=== PATIENT | female | born 1990 | race Caucasian/White ===

== ENCOUNTER 2018-02-25 18:09 | Emergency (ER) | payer MEDICAID ==
[~2018-02-25] VITALS: Ht 165.1 cm; Wt 106.3 kg
[2018-02-25 18:26] VITALS: BP 113/69; Ht 165.1 cm; Wt 106.3 kg
== END 2018-02-25 19:10 | disposition home or self-care (01) ==
LOC: ED 18:09
DX: L02.413 Cutaneous abscess of right upper limb (principal)
CPT/HCPCS: J2001

== ENCOUNTER 2018-02-27 19:12 | Emergency (ER) | payer MEDICAID ==
[~2018-02-27] VITALS: Ht 165.1 cm; Wt 107.0 kg
[2018-02-27 19:25] VITALS: Ht 165.1 cm; Wt 107.0 kg
[2018-02-27 21:05] VITALS: BP 121/86
== END 2018-02-27 21:05 | disposition home or self-care (01) ==
LOC: ED 19:12
DX: L02.413 Cutaneous abscess of right upper limb (principal); Z90.89 Acquired absence of other organs

== ENCOUNTER 2018-07-31 17:08 | Emergency (ER) | payer MEDICAID ==
[~2018-07-31] VITALS: Ht 165.1 cm; Wt 95.3 kg
[2018-07-31 17:11] VITALS: Ht 165.1 cm; Wt 95.3 kg
[2018-07-31 18:38] VITALS: BP 131/86
== END 2018-07-31 18:38 | disposition home or self-care (01) ==
LOC: ED 17:08
DX: T60.2X1A Toxic effect of other insecticides, accidental (unintentional), initial encounter (principal); L24.5 Irritant contact dermatitis due to other chemical products; Z98.890 Other specified postprocedural states; Y92.89 Other specified places as the place of occurrence of the external cause
CPT/HCPCS: J1200; J2930

== ENCOUNTER 2019-03-09 16:01 | Emergency (ER) | payer OTHER ==
[~2019-03-09] VITALS: Ht 165.1 cm; Wt 92.5 kg
[2019-03-09 16:12] VITALS: BP 123/81; Ht 165.1 cm; Wt 92.5 kg
[2019-03-09 16:40] LABS: BASOPHIL % 0.4 % (0-2); PLATELET COUNT 301 x10^3mcL (130-400); RED CELL DISTRIBUTION WIDTH 13.5 % (11.5-14.5)
== END 2019-03-09 18:51 | disposition home or self-care (01) ==
LOC: ED 16:01
DX: N93.9 Abnormal uterine and vaginal bleeding, unspecified (principal); Z90.89 Acquired absence of other organs
CPT/HCPCS: 36415